=== PATIENT | male | born 1990 | race African-American/Black ===

== ENCOUNTER 2019-08-21 09:38 | Emergency (ER) | payer SELFPAY ==
[2019-08-21] MEDS ORDERED: traMADol TAB* 50 MG PO ONE (11:28)
[2019-08-21 11:46] VITALS: BP 119/65
--- NOTE | 2019-08-21 11:59 | ED ---
GI/ HPI - HPI Summary HPI Summary: This is a 29 year old male who present with a chief complaint of painful hemorrhoids. These hemorrhoids have been present for the past 4 years, but in the past month he feels as if the hemorrhoids have descended. He has been able to push them back in, but they continue prolapsing. He also complains of mild rectal bleeding for the past week. Last night, he began to have severe pain near the anus, which did not allow him to sleep. He rates the pain as an 8/10, non-radiating and is not relieved by anything. It is made worse by lying on his back. He currently uses suppositories and applies Hydrocortisone cream that he received from the Urgent Care 4 weeks ago, but this has not relieved the pain. For the past month, he also complain of stomach fullness and states that "his stomach is getting bigger." He states that his stool is thin and he is no longer able to have daily bowel movement, instead he goes several times a day because he is not able to empty completely each time. Pt is HIV positive.he is waiting - History of Current Complaint Chief Complaint: EDRectalPain Time Seen by Provider: 08/21/19 09:45 Stated Complaint: HEMORRHOIDS PER PT Hx Obtained From: Patient Onset/Duration: Started Hours Ago - Rectal pain began the night before, but the hemorrhoids have been present for years. Timing: Constant Severity: Severe Current Severity: Severe Pain Intensity: 8 Location of Pain: Rectal Associated Signs and Symptoms: Positive: Rectal Pain, External Hemorrhoid, Constipation. Negative: Weakness, Nausea, Vomiting, Diarrhea, Fever, Lightheadedness, Abdominal Pain - Risk Factors GI Bleed Risk Factor(s): Hemorrhoid(s) - Pt denies bleeding at this time. - Allergy/Home Medications Allergies/Adverse Reactions: Allergies Allergy/AdvReac Type Severity Reaction Status Date / Time No Known Allergies Allergy Verified 08/21/19 09:43 PMH/Surg Hx/FS Hx/Imm Hx Previously Healthy: Yes Endocrine/Hematology History: Denies: Hx Blood Disorders - Immunization History Immunizations Up to Date: Unable to Obtain/Confirm Infectious Disease History: Yes Infectious Disease History: Reports: Hx Human Immunodeficiency Virus (HIV) Denies: Traveled Outside the [place] in Last 30 Days - Social History Occupation: Unemployed, Student Lives: Alone Alcohol Use: None Hx Substance Use: No Substance Use Type: Reports: None Hx Tobacco Use: No Smoking Status (MU): Former Smoker Review of Systems Negative: Fever Eyes: Negative ENT: Negative Cardiovascular: Negative Respiratory: Negative Negative: Abdominal Pain, Vomiting, Diarrhea, Nausea Positive: no symptoms reported Musculoskeletal: Negative Skin: Negative Neurological: Negative Psychological: Normal All Other Systems Reviewed And Are Negative: Yes Physical Exam Triage Information Reviewed: Yes Vital Signs On Initial Exam: Initial Vitals Temp Pulse Resp BP Pulse Ox 98.2 F 69 18 132/84 100 08/21/19 09:41 08/21/19 09:41 08/21/19 09:41 08/21/19 09:41 08/21/19 09:41 Vital Signs Reviewed: Yes Appearance: Positive: Well-Appearing, Well-Nourished Skin: Positive: Warm, Skin Color Reflects Adequate Perfusion, Other - Upon rectal exam: Two Grade 4 pale jerome/blue hemorrhoids, each approxmately 1.5 cm in diameter, protruding through the anus. No bleeding or open lesions noted. Head/Face: Positive: Normal Head/Face Inspection Neck: Positive: Supple, No Lymphadenopathy Respiratory/Lung Sounds: Positive: Clear to Auscultation Cardiovascular: Positive: Normal, RRR Musculoskeletal: Positive: Normal, Strength/ROM Intact Neurological: Positive: Speech Normal Psychiatric: Positive: Affect/Mood Appropriate AVPU Assessment: Alert Diagnostics - Vital Signs Vital Signs Temp Pulse Resp BP Pulse Ox 08/21/19 11:46 98.9 F 71 16 119/65 100 08/21/19 09:41 98.2 F 69 18 132/84 100 - Laboratory Lab Statement: Any lab studies that have been ordered have been reviewed, and results considered in the medical decision making process. GIGU Course/Dx - Course Course Of Treatment: Upon rectal exam: Two Grade 4 pale jerome/blue hemorrhoids, each approxmately 1.5 cm in diameter, protruding through the anus. No bleeding or open lesions noted. No strangulation. No thrombosed areas. The patient was given Dibucaine and Preparation-H for topical application daily, as well as Tramadol for his pain. He was also referred to Dr. Nur, and an appointment was made for a sugical evaluation on August 26 at 8:30 AM. - Diagnoses Provider Diagnoses: Prolapsed internal hemorrhoids, grade 4 Discharge ED - Sign-Out/Discharge Documenting (check all that apply): Patient Departure Patient Received Moderate/Deep Sedation with Procedure: No - Discharge Plan Condition: Stable Disposition: HOME Prescriptions: Dibucaine 1% OINT* [Nupercainal 1% oint*] 1 applic TOPICAL DAILY #1 tu Hemorrhoidal OINT* [Preparation H*] 1 applic MS TID PRN #1 tube PRN Reason: Pain - Mild traMADol TAB* [Ultram*] 50 mg PO Q8H PRN #12 tab MDD 3 PRN Reason: Pain Patient Education Materials: Hemorrhoids (ED), Hemorrhoidectomy (DC) Referrals: [facility] - Alberto AYALA [Primary Care Provider] - Additional Instructions: You have an appt next week with Dr. Nur at 8:30am Dibucaine 1% rectal ointment - as needed Also, Preparation H apply up to four times daily Senna as needed at bedtime for constipation symptoms - Billing Disposition and Condition Condition: STABLE Disposition: Home
== END 2019-08-21 11:46 | disposition home or self-care (01) ==
LOC: ED 09:38
DX: K64.3 Fourth degree hemorrhoids (principal); Z21 Asymptomatic human immunodeficiency virus [HIV] infection status; Z87.891 Personal history of nicotine dependence
CPT/HCPCS: 99282; A9270-GY

== ENCOUNTER 2019-08-28 10:21 | Emergency (ER) | payer SELFPAY ==
--- OUTSIDE RECORDS SUMMARY | 2019-08-28 10:36 | XMS REPORT | Continuity of Care Document ---
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 Problems Description No Information Available Social History Type Date Description Comments Sex Unknown ETOH Use consumes 4 beers per week Tobacco Use Start: Unknown End: Patient is a former smoker quit 2018 Unknown Recreational Drug Use Denies Drug Use Smoking Status Reviewed: 08/28/19 Patient is a former smoker quit 2019 Exercise Type/Frequency Exercises regularly Allergies, Adverse Reactions, Alerts Description No Known Drug Allergies Medications Active Medications SIG Qnty Indications Ordering Date Provider Tenofovir Disoproxil 1 by mouth every 30tabs Evangelist Busch 08/28/2019 day MD Boom 300mg Tablets Proctozone-HC Apply 1 Application Unknown 2.5% Of Cream Rectally 4 Cream Times Daily as Needed For 2 Weeks Dolutegravir 50 mg Unknown Epivir Unknown 300mg Tablets History Medications Proctofoam 1% Evangelist Nur MD 08/28/2019 - Unknown Foam Immunizations Description No Information Available Vital Signs Date Vital Result Comment 08/28/2019 9:29am Heart Rate 68 /min BP Systolic 118 mmHg BP Diastolic 70 mmHg Respiratory Rate 16 /min Body Temperature 98.0 F Results Description No Information Available Procedures Description No Information Available Medical Devices Description No Information Available Encounters Description No Information Available Assessments Description No Information Available Plan of Treatment Future Appointment(s):09/09/2019 11:15 am - Evangelist Nur MD at [facility] Functional Status Description No Information Available Mental Status Description No Information Available Referrals Description No Information Available
[2019-08-28] MEDS ORDERED: Bacitracin OINTMENT* 0.5% 0.5 oz TUBE TOPICAL ONE (11:02)
--- NOTE | 2019-08-28 11:03 | ED ---
Medical Screening - HPI Summary HPI Summary: 29 year old M presenting to [facility] requesting bloodwork because he is HIV positive and a needlestick happened to his physician while the physician was performing a procedure for thrombosed hemorrhoids on patient at 10:00 today 08/28. 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 Patient states his mother has HIV. Patient reports some rectal discomfort as a result of the procedure. Otherwise, patient has no complaints. He denies any pain, headache, dizziness, abdominal pain. The patient rates the pain 0/10 in severity. Symptoms aggravated by nothing. Symptoms alleviated by nothing. Patient states he takes daily antiviral medications. He states his last counts showed an undetectable viral load. Pt also knows that he is Hep C negative because he was recently tested. Patient is from [facility], [facility]. 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 Vital signs at triage: HR 72 bpm, BP 150/95, O2 sat 99% Home Medications Medication Instructions Recorded Confirmed Type Dibucaine 1% OINT* [Nupercainal 1% 1 applic TOPICAL DAILY #1 tu 08/21/19 Rx oint*] Hemorrhoidal OINT* [Preparation H*] 1 applic [place] TID PRN #1 tube 08/21/19 Rx traMADol TAB* [Ultram*] 50 mg PO Q8H PRN #12 tab MDD 3 08/21/19 Rx - History of Current Complaint Chief Complaint: EDGeneral Stated Complaint: NEEDS BLOOD WORK FOR DOC Time Seen by Provider: 08/28/19 10:41 Onset/Duration: Started Minutes Ago - 10:00 today Associated Signs and Symptoms: Negative - headache, dizziness, abdominal pain PMH/Surg Hx/FS Hx/Imm Hx Previously Healthy: No - HIV + since , on antiretrovirals, now with undetectable viral load Endocrine/Hematology History: Denies: Hx Diabetes Cardiovascular History: Denies: Hx Hypertension History: Reports: Other Problems/Disorders - hemorrhoids - Surgical History Surgical History: Yes Surgery Procedure, Year, and Place: treatment for thrombosed hemorrhoids 08/28/19 Infectious Disease History: Yes Infectious Disease History: Reports: Hx Human Immunodeficiency Virus (HIV) Denies: Traveled Outside the [place] in Last 30 Days - Family History Known Family History: Positive: Other - mother has HIV - Social History Occupation: Student Lives: Dormitory/Roommates Alcohol Use: None Hx Substance Use: No Substance Use Type: Reports: None Hx Tobacco Use: Yes Smoking Status (MU): Former Smoker Review of Systems Constitutional: Negative Cardiovascular: Negative Respiratory: Negative Positive: Other - rectal discomfort. Negative: Abdominal Pain Positive: no symptoms reported Skin: Negative Neurological: Negative - Dizziness Negative: Headache Psychological: Normal All Other Systems Reviewed And Are Negative: Yes Physical Exam - Summary Physical Exam Summary: Appearance: Well-appearing, no pain distress, well-nourished Skin: Warm, color reflects adequate perfusion, dry Head: Normal Head/Face inspection, atraumatic Eyes: Conjunctiva clear ENT: Normal inspection Neck: Supple, no JVD Respiratory: Lungs clear, normal breath sounds, no respiratory distress Cardio: RRR, No murmur, pulses normal, brisk capillary refill Abdomen: Soft, nontender (rectal area not visualized) Musculoskeletal: Strength Intact/ROM intact, no edema. Psychological: Normal Neuro: Alert, muscle tone normal, no focal deficit Triage Information Reviewed: Yes Vital Signs On Initial Exam: Initial Vitals Temp Pulse Resp BP Pulse Ox 98.4 F 72 16 150/95 99 08/28/19 10:24 08/28/19 10:24 08/28/19 10:24 08/28/19 10:24 08/28/19 10:24 Vital Signs Reviewed: Yes Procedures - Sedation Patient Received Moderate/Deep Sedation with Procedure: No Diagnostics - Vital Signs Vital Signs Temp Pulse Resp BP Pulse Ox 08/28/19 10:24 98.4 F 72 16 150/95 99 - Laboratory Lab Statement: Any lab studies that have been ordered have been reviewed, and results considered in the medical decision making process. Re-Evaluation - Re-Evaluation First Eval Re-Evaluation Time: 11:20 Change: Unchanged Comment: Discussed how labs will result and answered any questions to the best of my ability. Course/Dx - Course Course Of Treatment: 29 year old Male, who is HIV positive, requesting bloodwork to be done after a needlestick happened to his physician while the physician was performing a procedure on the patient for thrombosed hemorrhoids at 10:00 today 08/28/19. Patient medications reviewed this visit. Nurses notes reviewed. Allergies noted. High blood pressure noted. CD4/CD8 T-cell count, Hepatitis B antigen, and Hepatitis C antibody labs were ordered. Pt was discharged prior to the results of the labs. Hepatitis B antigen nonreactive, Hepatitis C antibody negative, Hepatitis. C antibody index 0.01. In the ED course, the patient was given topical bacitracin ointment. Patient will be discharged home with follow up from [facility] if needed, and Dr. Bowser and Dr. Nur. Patient was informed that his lab results may not be available today, and that he may not be called if the results are normal or undetected. He was advised to call back to the ER if he would like to know the results. Patient was instructed to return to Emergency Department for new or worsening symptoms. Patient understands and is agreeable to this plan. - Diagnoses Provider Diagnoses: Encounter for screening for other disorder, Unspecified thrombosed hemorrhoids Discharge ED - Sign-Out/Discharge Documenting (check all that apply): Patient Departure - Discharge - Discharge Plan Condition: Stable Disposition: HOME Patient Education Materials: HIV Infection (ED), Thrombosed Hemorrhoid (ED) Referrals: [facility] - Alberto AYALA [Primary Care Provider] - If Needed Mague MONTES,Christiano White [Medical Doctor] - (Dr. Bowser is our infectious disease specialist. Please contact him if you need any further care based on your results. ) Evangelist Nur MD [Medical Doctor] - (as scheduled ) Additional Instructions: Thank you for allowing your blood to be drawn today. The CD4/CD8 counts will not be available today. Those results are not always called to you if they are normal or undetected. If you wish to know those results, please call back to the ER to ask for these results. Say that you were a patient here and they will connect you to someone who can tell you those results. Please return to the ER if you have any concerns or new or worsening symptoms. - Billing Disposition and Condition Condition: STABLE Disposition: Home - Attestation Statements Document Initiated by Kar: Yes Documenting Scribe: Sarita Hdz Provider For Whom Kar is Documenting (Include Credential): Sloane Gagnon MD Scribe Attestation: Sarita Pedraza, scribed for Sloane Gagnon MD on 08/29/19 at 0149. Scribe Documentation Reviewed: Yes Provider Attestation: The documentation as recorded by the Sarita osman accurately reflects the service I personally performed and the decisions made by me, Sloane Gagnon MD Status of Scribe Document: Viewed
[2019-08-28 11:32] VITALS: BP 138/89
[2019-08-28 12:13] LABS: Hepatitis B Surface Antigen Nonreactive (Nonreactive)
[2019-08-28 12:31] LABS: Hepatitis C Antibody Negative (Negative)
[2019-08-29 16:47] LABS: 4/8 H/S Ratio 0.9 (>=0.9); CD3 1183 cells/mcL (550-2202); CD4 544 cells/mcL (365-1437); CD8 589 cells/mcL (199-846)
== END 2019-08-28 11:28 | disposition home or self-care (01) ==
LOC: ED 10:21
DX: K64.5 Perianal venous thrombosis (principal); Z21 Asymptomatic human immunodeficiency virus [HIV] infection status; Z79.899 Other long term (current) drug therapy; Z87.891 Personal history of nicotine dependence
CPT/HCPCS: 36415; 86359; 86360; 86803; 87340; 99282; A9270-GY